=== PATIENT | female | born 1940 | race Caucasian/White ===

== ENCOUNTER 2022-10-15 07:15 | Outpatient (CLI) | payer MEDICARE, BC, SELFPAY | END 2022-10-15 07:16 | disposition home or self-care (01) | LOC: AMB 10-18 16:11 | PROVIDERS: PCP Family Medicine; Visit Provider Family Medicine | DX: R53.1 Weakness (principal); R50.9 Fever, unspecified; R05.9 Cough, unspecified | CPT/HCPCS: A0425; A0427 ==

== ENCOUNTER 2022-10-15 08:03 | Emergency (ER) | payer MEDICARE, BC, SELFPAY ==
--- NOTE | 2022-10-15 08:21 | CRLHL7_ITS ---
For Patients: As a result of the Cures Act, medical imaging exams and procedure reports are released immediately into your electronic medical record. You may view this report before your referring provider. If you have questions, please contact your health care provider. INDICATION: Fever. Cough. COVID positive COMPARISON: None TECHNIQUE: Single-view examination FINDINGS: TUBES AND LINES: None. HEART AND MEDIASTINUM: The heart size is normal. The mediastinal contour appears normal for patient age. LUNGS AND PLEURAL SPACES: The lungs appear normal.The pleural spaces are unremarkable. OSSEOUS STRUCTURES: Age-appropriate appearance. No acute focal finding. IMPRESSION: No evidence of active pulmonary disease. Dictated by Marek Parra MD @ 10/15/2022 10:39:38 AM (Electronically Signed)
--- NOTE | 2022-10-15 08:21 | CRLHL7_ITS ---
For Patients: As a result of the Century Cures Act, medical imaging exams and procedure reports are released immediately into your electronic medical record. You may view this report before your referring provider. If you have questions, please contact your health care provider. INDICATION: Fall, weakness TECHNIQUE: Noncontrast axial CT of the head. Coronal and sagittal reformats. Bone and soft tissue algorithms. COMPARISON: No relevant comparison studies available at this institution. FINDINGS: Small focus of subarachnoid blood within the left ambient cistern (series 12/20), with likely trace subarachnoid blood along the medial left frontal lobe/cingulate sulcus. The ventricles and cortical sulci are mildly prominent. No midline shift, hydrocephalus or herniation. Porter-white matter differentiation is grossly maintained. Scattered foci of supratentorial white matter hypoattenuation. Calcific plaquing of the intracranial ICAs. Incidental, partially empty sella configuration. Bony calvarium appears grossly intact. 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 Slightly lobulated mucosal thickening bilateral maxillary sinuses, with small left-sided air-fluid level. No mastoid effusions. Bilateral lens implants. IMPRESSION: 1. Trace subarachnoid blood within the left ambient cistern and medial left frontal lobe/cingulate sulcus. 2. No discrete skull fracture. 3. Generalized cerebral volume loss, chronic microangiopathy changes. 4. Mild maxillary sinus mucosal thickening with left-sided air-fluid level/retained secretions. Exam findings were discussed with Neptali Vega at 10:41 a.m. on 10/15/2022. Please note that all CT scans at this facility use dose modulation, iterative reconstruction, and/or weight-based dosing when appropriate to reduce radiation dose to as low as reasonably achievable. Dictated by Amanda Quinones MD @ 10/15/2022 10:47:24 AM (Electronically Signed)
[2022-10-15 08:23] VITALS: BP 150/110; PULSE 75; RESP 18; TEMP 36.8; O2SAT 94; BMI 31.0
--- NOTE | 2022-10-15 08:24 | ED_ITS ---
HPI - General Adult General Time Seen by Provider: 08:24 Date Seen: 10/15/22 Chief complaint: Weakness Stated complaint: Fall Time Seen by Provider: 10/15/22 08:10 Source: EMS Mode of arrival: EMS Limitations: physical limitation History of Present Illness HPI narrative: Patient is an 82-year-old white female who was at home has had a fever and cough for last few days, tried to get up today and apparently passed out, was unable to get up. She lost control of her bowel, she has some dried blood in her mouth consistent with having perhaps even a mild vasovagal spell or transient loss of consciousness. Patient reports she has been eating and drinking adequately, has not had any chest pain, shortness of breath, but has had a cough, low-grade fevers, no dysuria frequency, no abdominal pain. No marked rashes, no nuchal rigidity, nose headache. The patient does report she has had PMR in the past Related Data Home Medications Medication Instructions Recorded Confirmed apixaban 5 mg tablet (Eliquis) mg 10/15/22 atorvastatin 20 mg tablet mg 10/15/22 cephalexin 500 mg capsule mg 10/15/22 clonazepam 0.5 mg tablet mg 10/15/22 dorzolamide 22.3 mg-timolol 6.8 10/15/22 mg/mL eye drops levothyroxine 50 mcg tablet mcg 10/15/22 levothyroxine 75 mcg tablet mcg 10/15/22 lisinopril 2.5 mg tablet mg 10/15/22 Allergies Allergy/AdvReac Type Severity Reaction Status Date / Time No Known Drug Allergies Allergy Verified 10/15/22 08:29 Review of Systems Status of ROS: Reports: 10 or more systems reviewed and unremarkable except as noted in History and below [facility] Social History Smoking Status: Unknown if ever smoked Do you use any of these nicotine containing products: None Non-prescribed substance use: denies use Exam Narrative: Exam Narrative: Objective: Patient is brought in by a ER gurney Vital signs are being obtained She is alert orient x3, noncyanotic, her mouth is dry no facial asymmetry, neck supple, no tenderness to head or neck There is a couple of flecks of dried blood in her mouth. No other HEENT T trauma, no neck pain to palpation Chest back abdomen unremarkable patient has stool coating the back of her shirt, her lungs are clear, heart is rate regular with 2/6 systolic murmur Abdomen is benign soft nontender Extremities without edema neurologic nonfocal, good peripheral perfusion noted, peripheral skin warm and dry. Her vital signs show blood pressure 150/100 pulse 75 respiratory 18 unlabored O2 sat 94% room air temp is 98.2? Const: Vital Signs, click to edit/add: Vital Signs - 24 hr 10/15/22 08:23 10/15/22 11:21 10/15/22 13:00 Temperature 98.2 F Pulse Rate 88 Pulse Rate [Right Pulse Oximeter] 75 Respiratory Rate 18 18 Blood Pressure 162/87 H Blood Pressure [Ri ght Upper Arm] 150/110 H Pulse Oximetry 94 94 93 Oxygen Delivery Me thod Room Air Course Vital Signs Vital signs: Initial Vital Signs Temperature 98.2 F 10/15/22 08:23 Temperature Source Temporal Artery Scan 10/15/22 08:23 Pulse Rate 75 10/15/22 08:23 Respiratory Rate 18 10/15/22 08:23 Blood Pressure 150/110 H 10/15/22 08:23 Blood Pressure Mean 123 10/15/22 08:23 Blood Pressure Position Supine 10/15/22 08:23 Pulse Oximetry 94 10/15/22 08:23 Oxygen Delivery Method 10/15/22 08:23 Vital Signs Temperature 98.2 F 10/15/22 08:23 Pulse Rate 75 10/15/22 08:23 Respiratory Rate 18 10/15/22 08:23 Blood Pressure 150/110 H 10/15/22 08:23 Pulse Oximetry 94 10/15/22 08:23 Oxygen Delivery Method 10/15/22 08:23 Temperature 98.2 F 10/15/22 08:23 Pulse Rate 88 10/15/22 13:00 Respiratory Rate 18 10/15/22 13:00 Blood Pressure 162/87 H 10/15/22 13:00 Pulse Oximetry 93 10/15/22 13:00 Oxygen Delivery Method 10/15/22 08:23 Medical Decision Making MDM Narrative Medical decision making narrative: Patient is had a fever and a cough, will check for COVID/RSV/influenza. Will check a chest x-ray, head CT scan, IV fluids, laboratory studies, blood cultures, urinalysis. Disposition pending findings above differential be broad including sepsis, pneumonia, fever, COVID, influenza etc. will schedule troponin level Addendum: Had a long discussion with the patient and her daughter regarding their concerns. Talked about our workup plan. The family was concerned about cauda equina syndrome, the patient really does not have severe back pain, does not have continued loss of bowel or bladder control, she states she stooled herself because ?I had to go?. The patient has no weakness in her lower extremities, she has chronic fibromyalgia or muscle type pain in her legs but nothing that is different than normal. She is able to straight leg raise without difficulty she has normal strength sensation lower extremities. Addendum: The patient has COVID, by my review her x-ray looks unremarkable her chest, head CT is pending because of this near syncopal type episode. Her EKG shows normal sinus rhythm right bundle branch block no obvious ST segment changes. She has had no chest pain. Her troponin is negative, her CRP is negative. At this point I think admission to hospital IV fluids monitoring would be appropriate, or CT scan of the head is still pending. Will talk to hospitalist. Addendum: The patient is positive for COVID, chest x-ray by my review looks unremarkable her EKG shows right bundle branch block as mention, Radiology read her head CT is showing a subarachnoid hemorrhage. Clearly she must to fall and hit her head today, I think could be appropriate for to be at a tertiary care center. Will make arrangements they [facility], with the bed limited ability to transfer we will make arrangements were able. She is hemodynamically and neurologically stable at this point. Addendum: The patient has had a stroke in the past, she has been on Eliquis subsequent to that about a year ago. All we have available here as [facility] will discuss with refer with receiving Hospital if they would like us to give that are not. Discussed with Dr. Cope of at [facility] [place] who kindly accepts in transfer transfer sheets completed. Patient is in hemodynamically stable condition and neurologic condition for transfer. They are in agreement with the transfer Lab Data Labs: Lab Results 10/15/22 10/15/22 10/15/22 Range/Units 08:21 09:13 09:13 WBC 6.50 (4.50-11.00) K/uL RBC 5.17 (4.00-5.20) m/uL Hgb 15.8 (12.0-16.0) gm/dL Hct 48.9 (33.0-51.0) % MCV 95 (80-100) fL MCH 31 (26-34) pg MCHC 32 (32-36) gm/dL RDW Coeff of Jayjay 13.9 (11.5-15.5) % Plt Count 117 L (140-440) K/uL Neut % (Auto) 69.8 (42.0-72.0) % Lymph % (Auto) 20.2 (20-44) % [place] % (Auto) 9.4 (0.0-11.0) % Eos % (Auto) 0.2 (0.0-7.0) % Baso % (Auto) 0.2 (0.0-3.0) % Neut # (Auto) 4.55 (1.7-7.0) K/uL Lymph # (Auto) 1.31 (0.90-2.90) K/uL [place] # (Auto) 0.60 (0.00-0.90) K/UL Eos # (Auto) 0.01 (0.00-0.50) K/uL Baso # (Auto) 0.01 (0.00-0.30) K/uL INR (0.91-1.10) APTT (23-33) Seconds Sodium 137 (135-149) mmol/L Potassium 4.1 (3.6-5.1) mmol/L Chloride 110 (96-114) mmol/L Carbon Dioxide 20 (20-32) mmol/L BUN 23 (7-30) mg/dL Creatinine 0.8 (0.5-1.5) mg/dL Estimated Creat Clear 35.88 Estimated GFR 74 ml/min Glucose 94 (60-115) mg/dL Lactate (0.5-1.9) mmol/L Calcium 8.6 (8.4-10.6) mg/dL Total Bilirubin 0.9 (0.1-1.5) mg/dL Direct Bilirubin 0.2 (0.0-0.5) mg/dL AST 95 H (12-35) U/L ALT 48 H (4-35) U/L Alkaline Phosphatase 130 (40-150) U/L Troponin I 0.01 (0.01-0.04) ng/mL C-Reactive Protein < 0.5 L (0.5-1.0) mg/dL NT-Pro-B Natriuret Pep 360 pg/mL Total Protein 6.9 (6.0-8.3) g/dL Albumin 3.8 (3.3-5.0) g/dL SARS-CoV-2 (PCR) POSITIVE SARS-CoV-2 A (Negative) Influenza Type A (PCR) Negative PCR FLU A (Negative) Influenza Type B (PCR) Negative PCR FLU B (Negative) RSV (PCR) Negative PCR RSV (Negative) 10/15/22 10/15/22 Range/Units 09:13 09:38 WBC (4.50-11.00) K/uL RBC (4.00-5.20) m/uL Hgb (12.0-16.0) gm/dL Hct (33.0-51.0) % MCV (80-100) fL MCH (26-34) pg MCHC (32-36) gm/dL RDW Coeff of Jayjay (11.5-15.5) % Plt Count (140-440) K/uL Neut % (Auto) (42.0-72.0) % Lymph % (Auto) (20-44) % [place] % (Auto) (0.0-11.0) % Eos % (Auto) (0.0-7.0) % Baso % (Auto) (0.0-3.0) % Neut # (Auto) (1.7-7.0) K/uL Lymph # (Auto) (0.90-2.90) K/uL [place] # (Auto) (0.00-0.90) K/UL Eos # (Auto) (0.00-0.50) K/uL Baso # (Auto) (0.00-0.30) K/uL INR 1.29 H (0.91-1.10) APTT 35 H (23-33) Seconds Sodium (135-149) mmol/L Potassium (3.6-5.1) mmol/L Chloride (96-114) mmol/L Carbon Dioxide (20-32) mmol/L BUN (7-30) mg/dL Creatinine (0.5-1.5) mg/dL Estimated Creat Clear Estimated GFR ml/min Glucose (60-115) mg/dL Lactate 2.0 H (0.5-1.9) mmol/L Calcium (8.4-10.6) mg/dL Total Bilirubin (0.1-1.5) mg/dL Direct Bilirubin (0.0-0.5) mg/dL AST (12-35) U/L ALT (4-35) U/L Alkaline Phosphatase (40-150) U/L Troponin I (0.01-0.04) ng/mL C-Reactive Protein (0.5-1.0) mg/dL NT-Pro-B Natriuret Pep pg/mL Total Protein (6.0-8.3) g/dL Albumin (3.3-5.0) g/dL SARS-CoV-2 (PCR) (Negative) Influenza Type A (PCR) (Negative) Influenza Type B (PCR) (Negative) RSV (PCR) (Negative) Discharge Plan Discharge Clinical Impression: Episode of syncope, Weakness, Cough with fever, Subarachnoid hemorrhage Patient Disposition: Xfer Other Condition: Stable Additional Instructions: Dr. gamez accepts at [facility] [place] transfer Prescriptions: No Action atorvastatin 20 mg tablet Label Comments: TAKE ONE TABLET BY MOUTH ONE TIME DAILY AT BEDTIME clonazepam 0.5 mg tablet Label Comments: TAKE ONE TABLET BY MOUTH TWICE DAILY levothyroxine 75 mcg tablet Label Comments: Take 1 Tablet (75 mcg) by mouth before breakfast levothyroxine 50 mcg tablet Label Comments: Take 1 Tablet (50 mcg) by mouth before breakfast cephalexin 500 mg capsule Label Comments: TAKE 4 CAPSULES BY MOUTH 1 HOUR PRIOR TO DENTAL APPOINTMENT. dorzolamide-timolol 22.3-6.8 mg/mL drops Label Comments: INSTILL ONE DROP INTO EACH EYE TWICE DAILY lisinopril 2.5 mg tablet Label Comments: TAKE ONE TABLET BY MOUTH ONE TIME DAILY Eliquis 5 mg tablet Label Comments: TAKE ONE TABLET BY MOUTH TWICE DAILY Stand Alone Forms: [facility]
[2022-10-15 09:22] LABS: Basophils Absolute Auto 0.01 K/uL (0.00-0.30); Basophils Percent Auto 0.2 % (0.0-3.0); Eosinophils Absolute Auto 0.01 K/uL (0.00-0.50); Eosinophils Percent Auto 0.2 % (0.0-7.0); Hematocrit 48.9 % (33.0-51.0); Hemoglobin* 15.8 gm/dL (12.0-16.0); Immature Granulocytes Abs Auto 0.01 K/uL (0.00-0.30); Immature Granulocytes Pct Auto 0.2 %; Lymphocytes Absolute Auto 1.31 K/uL (0.90-2.90); Lymphocytes Percent Auto 20.2 % (20-44); Mean Corpuscular HGB Conc 32 gm/dL (32-36); Mean Corpuscular Hemoglobin 31 pg (26-34); Mean Corpuscular Volume 95 fL (80-100); Monocytes Percent Auto 9.4 % (0.0-11.0); Neutrophils Absolute Auto 4.55 K/uL (1.7-7.0); Neutrophils Percent Auto 69.8 % (42.0-72.0); Platelet Count* 117 K/uL (140-440); RDW Coefficient of Variation % 13.9 % (11.5-15.5); Red Blood Count 5.17 m/uL (4.00-5.20)
[2022-10-15 09:30] LABS: Slide Review Reflex No
[2022-10-15 09:34] LABS: PCR FLU A Negative PCR FLU A (Negative); PCR FLU B Negative PCR FLU B (Negative); PCR RSV Negative PCR RSV (Negative)
[2022-10-15 09:38] LABS: Albumin* 3.8 g/dL (3.3-5.0); Chloride* 110 mmol/L (96-114)
[2022-10-15 09:39] LABS: Potassium* 4.1 mmol/L (3.6-5.1); Sodium* 137 mmol/L (135-149)
[2022-10-15 09:41] LABS: Creatinine* 0.8 mg/dL (0.5-1.5); Est. Creatinine Clearance* 35.88; Estimated Glomerular Filt Rate 74 ml/min
[2022-10-15 09:42] LABS: Alanine Aminotransferase* 48 U/L (4-35); Alkaline Phosphatase* 130 U/L (40-150); Aspartate Amino Transferase* 95 U/L (12-35); Bilirubin Direct* 0.2 mg/dL (0.0-0.5); Bilirubin Total* 0.9 mg/dL (0.1-1.5); Blood Urea Nitrogen* 23 mg/dL (7-30); Calcium* 8.6 mg/dL (8.4-10.6); Carbon Dioxide* 20 mmol/L (20-32); Glucose* 94 mg/dL (60-115); Total Protein* 6.9 g/dL (6.0-8.3)
[2022-10-15 09:48] LABS: SARS PCR* POSITIVE SARS-CoV-2 (Negative)
[2022-10-15 09:49] LABS: C Reactive Protein* < 0.5 mg/dL (0.5-1.0)
[2022-10-15 09:54] LABS: Troponin I* 0.01 ng/mL (0.01-0.04)
[2022-10-15 10:02] LABS: NT Pro B Type NatriureticPept* 360 pg/mL
[2022-10-15 10:26] LABS: INR 1.29 (0.91-1.10); Prothrombin Time 16.9 Seconds
[2022-10-15 10:27] LABS: Partial Thromboplastin Time* 35 Seconds (23-33)
[2022-10-15] MEDS: 0.9 % SODIUM CHLORIDE 1000 ml 1,000 ML 6000 ML IV (10:34)
[2022-10-15 11:21] VITALS: O2SAT 94
--- NOTE | 2022-10-15 11:57 | ED.NURSE ---
report given to JOY Arboleda at [facility] [place]
[2022-10-15 13:00] VITALS: BP 162/87; PULSE 88; RESP 18; O2SAT 93
== END 2022-10-15 13:41 | disposition other institution (70) ==
PROVIDERS: Emergency Provider Family Medicine; PCP Family Medicine
DX: R50.9 Fever, unspecified (principal); I60.9 Nontraumatic subarachnoid hemorrhage, unspecified
CPT/HCPCS: 36415; 70450; 71045; 80048; 80076; 81001; 83605; 83880; 84484; 85025; 85610; 85730; 86140; 87040; 87086; 87502; 87634; 87635; 93005; 94761; 99285; J7030

== ENCOUNTER 2022-10-15 13:10 | Outpatient (CLI) | payer MEDICARE, BC, SELFPAY | END 2022-10-15 13:11 | disposition home or self-care (01) | LOC: AMB 10-23 21:34 | PROVIDERS: PCP Family Medicine; Visit Provider Family Medicine | DX: S06.36AA Traumatic hemorrhage of cerebrum, unspecified, with loss of consciousness status unknown, initial encounter (principal); U07.1 COVID-19 | CPT/HCPCS: A0425; A0426; A0427 ==

== ENCOUNTER 2022-10-23 11:30 | Outpatient (CLI) | payer MEDICARE, BC, SELFPAY | END 2022-10-23 11:31 | disposition home or self-care (01) | LOC: AMB 10-26 12:46 | PROVIDERS: PCP Family Medicine; Visit Provider Family Medicine | DX: R06.09 Other forms of dyspnea (principal) | CPT/HCPCS: A0425; A0427 ==